=== PATIENT | male | born 1975 | race Caucasian/White ===

== ENCOUNTER 2020-10-23 17:37 | Emergency (ER) | payer BC, OTHER ==
[2020-10-23] MEDS ORDERED: FLU VACC QS2020-21(6MOS UP)/PF 60 MCG/0.5 ML SYRINGE IM ONE (18:15)
--- NOTE | 2020-10-23 19:53 | EDM.PDOC ---
ED HPI GENERAL MEDICAL PROBLEM - General Chief Complaint: General Stated Complaint: ARM NUMBNESS Time Seen by Provider: 10/23/20 19:24 Source of Information: Reports: Patient, RN Notes Reviewed History Limitations: Reports: No Limitations - History of Present Illness INITIAL COMMENTS - FREE TEXT/NARRATIVE: Patient is a 45-year-old male presenting to the emergency department with complaints of a 3 to 4-month history of intermittent numbness and tingling to areas of his body. He feels there is no association with eating. States soon after eating, he will develop numbness and tingling, mostly in various fingers on both hands, and occasionally on the lateral aspect of his feet. Symptoms last approximately 1 hour and then spontaneously resolve. Patient is currently taking methotrexate for her psoriasis which she states he has taken for a number of years. His primary care provider is located in [facility]. He states he is not seen her since December. He denies any difficulty with speech or unilateral deficits. He has no known history of electrolyte abnormalities or neurologic conditions. Symptoms were not present at the time of my exam. He has used marijuana in the past, but denies any other illicit drug use. - Related Data Allergies Allergy/AdvReac Type Severity Reaction Status Date / Time No Known Allergies Allergy Verified 10/23/20 17:59 Home Meds: Home Meds Finasteride 5 mg PO DAILY 10/23/20 [History] metHOTREXate sodium [Methotrexate] 2.5 mg PO PRUITT 10/23/20 [History] Past Medical History Musculoskeletal History: Reports: RA Dermatologic History: Reports: Psoriasis, Other (See Below) Other Dermatologic History: hidradenitis suppurative - Infectious Disease History Infectious Disease History: Reports: Chicken Pox Social & Family History - Tobacco Use Tobacco Use Status *Q: Current Every Day Tobacco User Years of Tobacco use: 20 Packs/Tins Daily: 1 - Caffeine Use Caffeine Use: Reports: Coffee - Recreational Drug Use Recreational Drug Use: No ED ROS GENERAL - Review of Systems Review Of Systems: See Below Constitutional: Reports: No Symptoms. Denies: Fever, Chills, Weakness HEENT: Reports: No Symptoms Respiratory: Reports: No Symptoms Cardiovascular: Reports: No Symptoms Endocrine: Reports: No Symptoms GI/Abdominal: Reports: No Symptoms : Reports: No Symptoms Neurological: Reports: Other (Intermittent numbness and paresthesia to fingers of bilateral hands and occasionally lateral aspects of bilateral feet.) Psychiatric: Reports: No Symptoms Hematologic/Lymphatic: Reports: No Symptoms Immunologic: Reports: No Symptoms ED EXAM, GENERAL - Physical Exam Exam: See Below Exam Limited By: No Limitations General Appearance: Alert, WD/WN, No Apparent Distress Respiratory/Chest: No Respiratory Distress, Lungs Clear, Normal Breath Sounds, No Accessory Muscle Use, Chest Non-Tender Cardiovascular: Normal Peripheral Pulses, Regular Rate, Rhythm, No Edema, No Gallop, No JVD, No Murmur, No Rub Extremities: Normal Inspection, Normal Range of Motion, Non-Tender, Normal Capillary Refill, No Pedal Edema Neurological: Alert, Oriented, CN II-XII Intact, Normal Cognition, Normal Gait, Normal Reflexes, No Motor/Sensory Deficits Psychiatric: Normal Affect, Normal Mood Skin Exam: Warm, Dry, Intact, Normal Color, No Rash Course - Vital Signs Last Recorded V/S: Last Vital Signs Temp 98.4 F 10/23/20 18:05 Pulse 88 10/23/20 18:05 Resp 20 10/23/20 18:05 BP 132/95 H 10/23/20 18:05 Pulse Ox 98 10/23/20 18:05 - Orders/Labs/Meds Orders: Active Orders 24 hr Category Date Time Status Influenza Vaccine Charge [RC] .DISCHARGE Care 10/23/20 18:08 Active Head wo Cont [CT] Stat Exams 10/23/20 19:45 Taken Labs: Laboratory Tests 10/23/20 10/23/20 Range/Units 19:54 19:54 WBC 6.25 (4.23-9.07) K/mm3 RBC 3.72 L (4.63-6.08) M/mm3 Hgb 13.5 L (13.7-17.5) gm/dl Hct 40.7 (40.1-51.0) % MCV 109.4 H (79.0-92.2) fl MCH 36.3 H (25.7-32.2) pg MCHC 33.2 (32.2-35.5) g/dl RDW Std Deviation 48.4 H (35.1-43.9) fL Plt Count 209 (163-337) K/mm3 MPV 9.1 L (9.4-12.3) fl Neut % (Auto) 68.8 H (34.0-67.9) % Lymph % (Auto) 21.9 (21.8-53.1) % [place] % (Auto) 8.0 (5.3-12.2) % Eos % (Auto) 0.5 L (0.8-7.0) Baso % (Auto) 0.3 (0.1-1.2) % Neut # (Auto) 4.30 (1.78-5.38) K/mm3 Lymph # (Auto) 1.37 (1.32-3.57) K/mm3 [place] # (Auto) 0.50 (0.30-0.82) K/mm3 Eos # (Auto) 0.03 L (0.04-0.54) K/mm3 Baso # (Auto) 0.02 (0.01-0.08) K/mm3 Manual Slide Review Abnormal smear Sodium 138 (136-145) mEq/L Potassium 4.1 (3.5-5.1) mEq/L Chloride 101 (98-107) mEq/L Carbon Dioxide 23 (21-32) mEq/L Anion Gap 18.1 H (5-15) BUN 10 (7-18) mg/dL Creatinine 1.1 (0.7-1.3) mg/dL Est Cr Clr Drug Dosing 79.89 mL/min Estimated GFR (MDRD) > 60 (>60) mL/min BUN/Creatinine Ratio 9.1 L (14-18) Glucose 81 (74-106) mg/dL Calcium 8.8 (8.5-10.1) mg/dL Magnesium 1.9 (1.8-2.4) mg/dl Total Bilirubin 0.8 (0.2-1.0) mg/dL AST 38 H (15-37) U/L ALT 26 (16-63) U/L Alkaline Phosphatase 46 (46-116) U/L C-Reactive Protein < 0.2 (<1.0) mg/dL Total Protein 6.9 (6.4-8.2) g/dl Albumin 3.8 (3.4-5.0) g/dl Globulin 3.1 gm/dL Albumin/Globulin Ratio 1.2 (1-2) Meds: Medications Discontinued Medications Generic Name Dose Route Start Last Admin Trade Name Freq PRN Reason Stop Dose Admin Influenza Virus Vaccine 1 each 10/23/20 18:08 Pharmacy To Dose - Influenza Vaccine IM 10/23/20 18:09 ONETIME ONE Influenza Virus Vaccine 60 mcg 10/23/20 18:15 Fluzone Quad [id number] Syringe IM 10/23/20 18:16 .ONCE ONE - Re-Assessments/Exams Free Text/Narrative Re-Assessment/Exam: Patient is a 45-year-old male presenting to the emergency department with complaints of intermittent and random paresthesia to his distal extremities. He feels that there is association to when he eats. Symptoms are not present at the time of exam. His neurologic exam was found to be completely normal. Ordered blood work to check for electrolyte abnormalities including CBC, CMP, magnesium, CRP. We also do a CT scan of his head to rule out any intracranial abnormalities. 10/23/20 22:06 Is work-up was grossly unremarkable. Electrolytes are normal. CT scan of the head shows no acute intracranial process. There is some mild generalized atrophy for the patient's stated age. Discussed results with patient. Would recommend that he follow-up with his primary care provider as further imaging such as MRI may be indicated. He may also benefit from a referral to neurology as needed. Discharge instructions as documented. Departure - Departure Time of Disposition: 22:07 Disposition: Home, Self-Care 01 Condition: Good Clinical Impression: Paresthesia - Discharge Information *PRESCRIPTION DRUG MONITORING PROGRAM REVIEWED*: No *COPY OF PRESCRIPTION DRUG MONITORING REPORT IN PATIENT ELAINE: No Referrals: Bev Joyner NP [Ordering Only Provider] - Forms: ED Department Discharge Additional Instructions: You were seen in the emergency department today for random, intermittent numbness and tingling to your distal extremities over the last 3 to 4 months. Work-up included blood work and a CT scan of your head. Your work-up was found to be normal. As we discussed, I would recommend that you follow-up with your primary care provider as further testing in the form of MRI or possibly a referral to neurology may be indicated. If you should experience any new or worsening symptoms of concern, please do not hesitate to return to the emergency department for reevaluation. Sepsis Event Note (ED) - Evaluation Sepsis Screening Result: No Definite Risk - Focused Exam Vital Signs: Vital Signs Temp Pulse Resp BP Pulse Ox 10/23/20 18:05 98.4 F 88 20 132/95 H 98 - My Orders Last 24 Hours: My Active Orders 10/23/20 18:08 Influenza Vaccine Charge [RC] .DISCHARGE 10/23/20 19:45 Head wo Cont [CT] Stat - Assessment/Plan Last 24 Hours: My Active Orders 10/23/20 18:08 Influenza Vaccine Charge [RC] .DISCHARGE 10/23/20 19:45 Head wo Cont [CT] Stat
--- NOTE | 2020-10-24 10:25 | CT ---
Head CT Technique: Multiple axial sections through the brain were obtained. Intravenous contrast was not utilized. Comparison: No prior intracranial imaging is available. Findings: Intracranial: Ventricles along with basal cisterns and sulci over the convexities are slightly prominent. No abnormal parenchymal densities are seen. No evidence of intracranial hemorrhage. No midline shift or mass-effect is seen. Calvarial structures: Visualized mastoid sinuses and visualized paranasal sinuses show nothing acute. No acute calvarial abnormality is appreciated. Impression: 1. Mild atrophy. 2. No acute intracranial abnormality is otherwise seen. Diagnostic code #2
== END 2020-10-23 22:20 | disposition home or self-care (01) ==
LOC: JD.ED 17:37
DX: R20.2 Paresthesia of skin (principal); R20.0 Anesthesia of skin; F17.210 Nicotine dependence, cigarettes, uncomplicated; Z23 Encounter for immunization
CPT/HCPCS: 36415; 70450; 70450-26; 80053; 83735; 85025; 86140; 90471; 90686; 99283; 99284-25

== ENCOUNTER 2021-07-01 13:08 | Emergency (ER) | payer OTHER ==
--- NOTE | 2021-07-01 15:29 | EDM.PDOC ---
ED HPI GENERAL MEDICAL PROBLEM - General Chief Complaint: Skin Complaint Stated Complaint: ABSCESS ON BUTTOCK Time Seen by Provider: 07/01/21 15:08 - History of Present Illness INITIAL COMMENTS - FREE TEXT/NARRATIVE: 46-year-old male presents the emergency room with recurrent abscess in his perirectal region Patient has had recurrent abscesses removed from this area probably 15-18 over his life. He has a diagnosis of hidradenitis suppurativa he has had multiple lesions treated in his axilla as well and he was recently diagnosed with pilonidal disease over his sacrum. This current lesion and has grown significantly but was first noticed this morning. He has not had any fevers or chills. Last meal was 7:00 this morning he had some coffee as late as 11:00 this morning. Rectal Pain Score (Numeric/FACES): 5 - Related Data Allergies Allergy/AdvReac Type Severity Reaction Status Date / Time No Known Allergies Allergy Verified 07/01/21 13:30 Home Meds: Home Meds Finasteride 5 mg PO DAILY 10/23/20 [History] Clindamycin Phosphate 60 ml TP BID #1 lotion 07/01/21 [Rx] Fish Oil/[place]-3 Fatty Acids [Fish Oil 1,000 MG] 1 each PO DAILY 07/01/21 [History] Multivitamin 1 each PO DAILY 07/01/21 [History] Zinc Gluconate 100 mg PO DAILY #21 tablet 07/01/21 [Rx] Past Medical History Musculoskeletal History: Reports: RA Dermatologic History: Reports: Psoriasis, Other (See Below) Other Dermatologic History: hidradenitis suppurative - Infectious Disease History Infectious Disease History: Reports: Chicken Pox Social & Family History - Tobacco Use Tobacco Use Status *Q: Current Every Day Tobacco User Years of Tobacco use: 25 Packs/Tins Daily: 0.5 - Caffeine Use Caffeine Use: Reports: Coffee - Alcohol Use Days Per Week of Alcohol Use: 7 Number of Drinks Per Day: 2 Total Drinks Per Week: 14 Date of Last Drink: 06/30/21 - Recreational Drug Use Recreational Drug Use: No ED ROS GENERAL - Review of Systems Review Of Systems: See Below Constitutional: Reports: No Symptoms Respiratory: Reports: No Symptoms Cardiovascular: Reports: No Symptoms GI/Abdominal: Reports: No Symptoms : Reports: No Symptoms Musculoskeletal: Reports: No Symptoms Skin: Reports: Other (See HPI) ED EXAM, SKIN/RASH Exam: See Below Exam Limited By: No Limitations General Appearance: Alert, No Apparent Distress Respiratory/Chest: No Respiratory Distress, Lungs Clear, Normal Breath Sounds Cardiovascular: Normal Peripheral Pulses, Regular Rate, Rhythm, No Edema GI/Abdominal: Normal Bowel Sounds, Soft, Non-Tender Rectal (Males) Exam: Other (He has a perirectal lesion that looks like a developing abscess. He is good some scar tissue noted in the region this is fluctuant over one area and the area looks like it has been oozing a little bit exudative material.) Course - Vital Signs Last Recorded V/S: Last Vital Signs Temp 37.2 C 07/01/21 13:27 Pulse 96 07/01/21 13:27 Resp 16 07/01/21 13:27 BP 119/88 07/01/21 13:27 Pulse Ox 99 07/01/21 13:27 - Orders/Labs/Meds Orders: Active Orders 24 hr Category Date Time Status cefTRIAXone 1 GM with Lidocaine 1% 2.1 ML IM Med 07/01/21 16:45 Ordered cefTRIAXone [Rocephin] 1 gm Lidocaine 1% [Xylocaine 1%] 2.1 ml IM Q24H Medication Orders Ceftriaxone Sodium 1 gm/ (Lidocaine HCl 2.1 ml) 0 gm IM Q24H [facility] Meds: Medications Generic Name Dose Route Start Last Admin Trade Name Freq PRN Reason Stop Dose Admin Ceftriaxone Sodium 1 gm/ 0 gm 07/01/21 16:45 Lidocaine HCl 2.1 ml IM Q24H OLIVE Discontinued Medications Generic Name Dose Route Start Last Admin Trade Name Freq PRN Reason Stop Dose Admin Lidocaine HCl 10 ml 07/01/21 15:49 Lidocaine 1% 10 Ml Mdv INJECT 07/01/21 15:50 ONETIME ONE - Re-Assessments/Exams Free Text/Narrative Re-Assessment/Exam: 07/01/21 15:53 Case was reviewed with Dr. Jackson who did come and evaluate the patient. He is willing to aspirate the lesion but did discuss the importance of having either a reaming machine tender or possibly soc analyst manages illness for him. He discouraged the use of excisional removal of lesions. 07/01/21 16:38 Jackson to drain off little over 4 cc of exudate from the most fluctuant area at this point we will give 1 g Rocephin and start him on topical clindamycin and recommended zinc for the next 3 weeks. Long-term treatment is considered plastic reconstruction use topical resourcinol sulfur dressings daily consider methylprednisolone taper for 1 week consider oral rifampin moxifloxacin and metronidazole therapy for 12 weeks consider tumor necrosis factor floyd adalinimab. It is strongly recommended that somebody that has expertise in this field manage this such as a reaming machine tender or soc analyst. Departure - Departure Time of Disposition: 16:42 Disposition: Home, Self-Care 01 Clinical Impression: Hidradenitis suppurativa of anus - Discharge Information Referrals: PCP,None [Primary Care Provider] - Forms: ED Department Discharge Additional Instructions: Return to the emergency room with any questions problems or worsening symptoms. Take the zinc as prescribed and the topical clindamycin use twice daily. There is a refill for the clindamycin. The clindamycin is a topical antibiotic. [facility] [place] [facility]. Follow-up with your regular healthcare providers in the next day or 2. Sepsis Event Note (ED) - Evaluation Sepsis Screening Result: No Definite Risk - Focused Exam Vital Signs: Vital Signs Temp Pulse Resp BP Pulse Ox 07/01/21 13:27 37.2 C 96 16 119/88 99 - My Orders Last 24 Hours: My Active Orders 07/01/21 16:45 cefTRIAXone 1 GM with Lidocaine 1% 2.1 ML IM cefTRIAXone [Rocephin] 1 gm Lidocaine 1% [Xylocaine 1%] 2.1 ml IM Q24H - Assessment/Plan Last 24 Hours: My Active Orders 07/01/21 16:45 cefTRIAXone 1 GM with Lidocaine 1% 2.1 ML IM cefTRIAXone [Rocephin] 1 gm Lidocaine 1% [Xylocaine 1%] 2.1 ml IM Q24H
[2021-07-01] MEDS ORDERED: Lidocaine 1% 10 ML MDV INJECT ONE (15:49)
--- NOTE | 2021-07-01 16:41 | PCM.PRNOTE ---
- Free Text/Narrative Note: Date: 07/01/2021 Procedure: Needle aspiration of perianal abscess in patient with hidradenitis suppurativa Surgeon: Eben Jackson MD Written consent was obtained. The patient was positioned on the stretcher in left lateral decubitus position. The painful fluctuant area was cleansed with an iodine swab. 2 cc 1% lidocaine was injected intradermally with a 27 G needle. An 18 G needle was then inserted at the point of fluctuance and negative pressure applied. About 5 cc of thin purulent liquid was apirated along with some blood. No remaining fluctuance was appreciated afterwards. The patient tolerated the procedure well.
[2021-07-01] MEDS ORDERED: cefTRIAXone 1 GM, Lidocaine 1% 2.1 ML IM SCH ×2 (16:45)
--- NOTE | 2021-07-01 16:46 | PCM.CONS ---
H&P History of Present Illness - General Date of Service: 07/01/21 Admit Problem/Dx: Hidradenitis suppurativa with painful perianal abscess Source of Information: Patient, Provider History Limitations: Reports: No Limitations - History of Present Illness Initial Comments - Free Text/Narative: Mr. Durant is a 46 yo man with history of hidradenitis which has affected his axillae, groin and perineum for years. He was treated surgically in the past at least for the axillary disease by Dr. Villalobos. He takes no medication for hidradenitis and has not seen a specialist for management. He saw Dr. Steen g eneral surgery, in clinic recently and was found to have pilonidal disease at the lower midline as well. He presents today for a painful swelling near the anus which has developed over the past few days. Dr. Steen advised the patient to consult with plastic surgery regarding excision and skin grafting, but the patient has not made an appointment for this. Rectal Pain Score (Numeric/FACES): 5 - Related Data Allergies/Adverse Reactions: Allergies Allergy/AdvReac Type Severity Reaction Status Date / Time No Known Allergies Allergy Verified 07/01/21 13:30 Home Medications: Home Meds Finasteride 5 mg PO DAILY 10/23/20 [History] Fish Oil/[place]-3 Fatty Acids [Fish Oil 1,000 MG] 1 each PO DAILY 07/01/21 [History] Multivitamin 1 each PO DAILY 07/01/21 [History] Past Medical History Musculoskeletal History: Reports: RA Dermatologic History: Reports: Psoriasis, Other (See Below) Other Dermatologic History: hidradenitis suppurative - Infectious Disease History Infectious Disease History: Reports: Chicken Pox Social & Family History - Tobacco Use Tobacco Use Status *Q: Current Every Day Tobacco User Years of Tobacco use: 25 Packs/Tins Daily: 0.5 - Caffeine Use Caffeine Use: Reports: Coffee - Alcohol Use Days Per Week of Alcohol Use: 7 Number of Drinks Per Day: 2 Total Drinks Per Week: 14 Date of Last Drink: 06/30/21 - Recreational Drug Use Recreational Drug Use: No H&P Review of Systems - Review of Systems: Review Of Systems: See Below General: Reports: No Symptoms HEENT: Reports: No Symptoms Pulmonary: Reports: No Symptoms Cardiovascular: Reports: No Symptoms Gastrointestinal: Reports: No Symptoms Genitourinary: Reports: No Symptoms Musculoskeletal: Reports: No Symptoms Skin: Reports: Other (hidradenitis with pain and drainage at lower back, perineum) Neurological: Reports: No Symptoms Hematologic/Lymphatic: Reports: No Symptoms Immunologic: Reports: No Symptoms Exam - Exam Exam: See Below - Vital Signs Vital Signs: Last Vital Signs Temp 37.2 C 07/01/21 13:27 Pulse 96 07/01/21 13:27 Resp 16 07/01/21 13:27 BP 119/88 07/01/21 13:27 Pulse Ox 99 07/01/21 13:27 Weight: 69.853 kg - Exam General: Alert, Oriented, Cooperative HEENT: Conjunctiva Clear Neck: Supple Lungs: Normal Respiratory Effort Cardiovascular: Regular Rate, Regular Rhythm GI/Abdominal Exam: Soft, Non-Tender (Male) Exam: Other (genitals and groin appear normal) Back Exam: Other (pilonidal sinuses noted at apex of gluteal cleft, with some thin, scant purulent drainage, no palpable underlying pilonidal abscess) Skin: Other (evidence of resolved hidradenitis at bilateral axillae, indurated perianal tissue with raised nodular tender area with associated fluctuance) Neuro Extensive - Mental Status: Alert, Oriented x3 Psychiatric: Normal Mood Sepsis Event Note - Evaluation Sepsis Screening Result: No Definite Risk - Focused Exam Vital Signs: Vital Signs Temp Pulse Resp BP Pulse Ox 07/01/21 13:27 37.2 C 96 16 119/88 99 Consult PN Assessment/Plan Procedures: Procedures ASSAY OF MAGNESIUM (10/23/20) C-REACTIVE PROTEIN (10/23/20) COMPLETE CBC W/AUTO DIFF WBC (10/23/20) COMPREHEN METABOLIC PANEL (10/23/20) CT HEAD/BRAIN W/O DYE (10/23/20) EMERGENCY DEPT VISIT (10/23/20) IIV4 VACC NO PRSV 0.5 ML IM (10/23/20) IMMUNIZATION ADMIN (10/23/20) ROUTINE VENIPUNCTURE (10/23/20) Problem List Initiated/Reviewed/Updated: Yes Plan: The patient appears to have moderate hidradenitis, currently affecting the perineum. There are noted draining pilonidal sinuses in close proximity without evidence of pilonidal abscess. There is a single painful left-sided perianal abscess. This was aspirated with a 18 G needle using local anesthetic and 5 cc of pus was drained. A larger incision was avoided due to concern for worsening underlying hidradenitis. The patient currently has no medical management in place for his disease. I explained to him that the abscess is likely to recur without a proper supervisor intermediates management plan in place. For more advanced or refractory disease, medical management should include Psychological screening for issues of depression, socialization, and body image Zinc gluconate 90 mg/day for 3 weeks Topical resorcinol-sulfur dressing daily ad infinitum Methylprednisolone 1-week taper Intravenous ceftriaxone (1 dose), then oral rifampin, moxifloxacin, metronidazole for 12 weeks, then rifampin and moxifloxacin for 12 more weeks If all these fail, dapsone and or cyclosporine can be considered. Finally, cons ider the tissue necrosis factor floyd adalimumab. However, surgery may be the best option for definitive cure. Mild disease can be treated with simple unroofing and curettage, but chronic wound management can be a challenge and recurrence is high. Advanced disease should be managed with excision of affected tissue and closure with skin grafting. I recommended that the patient make an appointment to see his primary provider this week for chronic management of hidradenitis and that he see a plastic surgeon for assessment and recommendations.
== END 2021-07-01 17:20 | disposition home or self-care (01) ==
LOC: JD.ED 13:08
DX: L73.2 Hidradenitis suppurativa (principal); Z72.0 Tobacco use
CPT/HCPCS: 96372; 99282; J0696; 99283

== ENCOUNTER → 2021-07-04 | Day surgery (SDC) | payer OTHER ==
[~2021-07-04] MED LIST: Bacitracin Oint 15 GM Tube ONE; Lactated Ringers 1,000 ML IV SCH; Lidocaine 1% 8 ML ONE; Lidocaine 1%/Sod Bicarbonate in NS 8.4% 1 ML Syringe IDERM PRN; Midazolam 1 MG/ML 2 ML SDV ONE; Ondansetron 4 MG/2 ML SDV ONE; Propofol 200 MG/20 ML SDV ONE; Sodium Chloride 0.9% 10 ML Syringe FLUSH PRN; fentaNYL 100 MCG/2 ML SDV ONE
--- NOTE | 2021-07-04 12:10 | PCM.PREANE ---
Preanesthetic Assessment - Procedure Proposed Procedure: Examination under anesthesia - Anesthesia/Transfusion/Family Hx Anesthesia History: Prior Anesthesia Without Reaction - Review of Systems General: No Symptoms Pulmonary: No Symptoms Cardiovascular: No Symptoms Gastrointestinal: No Symptoms Neurological: No Symptoms Other: Reports: None - Physical Assessment NPO Status Date: 07/03/21 NPO Status Time: 22:00 Vital Signs: Last Vital Signs Temp 99.3 F 07/04/21 11:30 Pulse 88 07/04/21 11:30 Resp 20 07/04/21 11:30 BP 118/85 07/04/21 11:30 Pulse Ox 97 07/04/21 11:30 ASA Class: 2 Mental Status: Alert & Oriented x3 Airway Class: Mallampati = 2 Dentition: Reports: Normal Dentition, [place](s) Thyro-Mental Finger Breadths: 3 Mouth Opening Finger Breadths: 3 ROM/Head Extension: Full Lungs: Clear to Auscultation, Normal Respiratory Effort Cardiovascular: Regular Rate, Regular Rhythm - Allergies Allergies/Adverse Reactions: Allergies Allergy/AdvReac Type Severity Reaction Status Date / Time No Known Allergies Allergy Verified 07/01/21 13:30 - Acknowledgements Anesthesia Type Planned: General Anesthesia, MAC Pt an Appropriate Candidate for the Planned Anesthesia: Yes Alternatives and Risks of Anesthesia Discussed w Pt/Guardian: Yes Pt/Guardian Understands and Agrees with Anesthesia Plan: Yes PreAnesthesia Questionnaire Musculoskeletal History: Reports: RA Dermatologic History: Reports: Psoriasis, Other (See Below) Other Dermatologic History: hidradenitis suppurative - Infectious Disease History Infectious Disease History: Reports: Chicken Pox - HOME MEDS Home Medications: Home Meds Finasteride 5 mg PO DAILY 10/23/20 [History] Clindamycin Phosphate 60 ml TP BID #1 lotion 07/01/21 [Rx] Fish Oil/[place]-3 Fatty Acids [Fish Oil 1,000 MG] 1 each PO DAILY 07/01/21 [History] Multivitamin 1 each PO DAILY 07/01/21 [History] Zinc Gluconate 100 mg PO DAILY #21 tablet 07/01/21 [Rx] - CURRENT (IN HOUSE) MEDS Current Meds: Current Medications Lactated Ringer's (Ringers, Lactated) 1,000 mls @ 125 mls/hr IV ASDIRECTED OLIVE Stop: 07/04/21 23:00 Lidocaine/Sodium Bicarbonate (Lidocaine 1%/Sod Bicarbonate In Ns 8.4% 1 Ml Syringe) 0.25 ml IDERM ONETIME PRN PRN Reason: Prior to IV Start Stop: 07/04/21 18:00 Sodium Chloride (Sodium Chloride 0.9% 10 Ml Syringe) 10 ml FLUSH ASDIRECTED PRN PRN Reason: Keep Vein Open Stop: 07/04/21 18:00 Discontinued Medications Fentanyl (Fentanyl 100 Mcg/2 Ml Sdv) Confirm Administered Dose 100 mcg .ROUTE .STK-MED ONE Stop: 07/04/21 11:55 Lidocaine HCl (Xylocaine-Mpf 1%) Confirm Administered Dose 8 mls @ as directed .ROUTE .STK-MED ONE Stop: 07/04/21 11:55 Midazolam HCl (Midazolam 1 Mg/Ml 2 Ml Sdv) Confirm Administered Dose 4 mg .ROUTE .STK-MED ONE Stop: 07/04/21 11:55 Propofol (Propofol 200 Mg/20 Ml Sdv) Confirm Administered Dose 400 mg .ROUTE .STK-MED ONE Stop: 07/04/21 11:56
[2021-07-04] MEDS: Bupivacaine 0.5%/EPINEPHrine 1:200,000 50 ML MDV ONE ×2 (13:14→13:26)
--- NOTE | 2021-07-04 13:54 | PCM.PRNOTE ---
- Free Text/Narrative Note: Date: 07/04/2021 Operation: excision of pilonidal disease Surgeon: Eben Jackson MD Findings: multiple sinus tract overlying the sacrum and seen at the edge of the anoderm containing hair fragments. The left perianal abscess cavity was opened up more and debrided. Excision of skin with involved pilonidal disease over sacrum and posterior perianal area. Detailed Report: The patient was taken to the operating room and placed on the table in prone position. Monitored anesthesia care was initiated and timeout was performed. The patient was then repositioned in jackknife, and wide silk tape was used to retract the buttocks laterally exposing the anus. The area was prepped with iodine and draped in sterile fashion. A perianal block using 30 cc of 0.5% Marcaine with epinephrine was used for local anesthetic. Additional anesthetic was injected in the sacral area where skin was involved with pilonidal disease. A lacrimal probe was used to explore the sinus tracts overlying the sacrum, which were all fairly superficial and did not appear acutely infected. Multiple pits in this area and around the edge of the anoderm were noted and all hair fragments that were visible were removed with forceps. The area of prior abscess drainage just left to the anus was inspected. The opening was probed and there was no undrained pus appreciated. The roof of the abscess cavity was removed using monopolar energy. The abscess cavity measured approximately 3 x 3 cm. The wall of the cavity was debrided with a curette. This pocket seemed to extend posteriorly towards the area of pilonidal disease overlying the sacrum. An ellipse of skin was excised overlying the sacrum including all the visible pilonidal pits which measured 7 x 5 x 1 cm. The depth of tissue excision was to subcutaneous tissue. All devitalized and infected tissue associated with the abscess cavity was removed. The perianal tissue was left alone for now. There did not appear to be active inflamed hidradenitis or evidence of a perianal fistula. The wound was coated with bacitracin ointment and packed with moist Kerlix. An ABD pad and mesh underwear were applied for dressing. The patient tolerated the procedure well.
--- NOTE | 2021-07-04 14:03 | PCM48HPAN ---
Post Anesthesia Note - EVALUATION WITHIN 48HRS OF ANESTHETIC Vital Signs in Normal Range: Yes Patient Participated in Evaluation: Yes Respiratory Function Stable: Yes Airway Patent: Yes Cardiovascular Function Stable: Yes Hydration Status Stable: Yes Pain Control Satisfactory: Yes Nausea and Vomiting Control Satisfactory: Yes Mental Status Recovered: Yes Vital Signs: Last Vital Signs Temp 98.2 F 07/04/21 13:44 Pulse 87 07/04/21 13:44 Resp 20 07/04/21 13:44 BP 96/59 L 07/04/21 13:44 Pulse Ox 97 07/04/21 13:44
== END | disposition home or self-care (01) ==
LOC: JD.SDS 11:29
PROVIDERS: ATTEND Surgery
DX: L05.01 Pilonidal cyst with abscess (principal); F17.210 Nicotine dependence, cigarettes, uncomplicated
CPT/HCPCS: 11771; A9270; J2250; J2405; J2704; J3010; J3490; J7120; 00300

== ENCOUNTER 2021-10-28 07:57 | Day surgery (SDC) | payer OTHER ==
[2021-10-28] MEDS ORDERED: Lidocaine 1% 10 ML MDV INJECT ONE (08:40)
--- NOTE | 2021-10-28 08:40 | EDM.PDOC ---
ED HPI GENERAL MEDICAL PROBLEM - General Chief Complaint: Gastrointestinal Problem Stated Complaint: ABCESS ON ANUS Time Seen by Provider: 10/28/21 08:19 Source of Information: Reports: Patient, Old Records (ED visit 07/01/2021) History Limitations: Reports: No Limitations - History of Present Illness INITIAL COMMENTS - FREE TEXT/NARRATIVE: Mr. Durant is a very pleasant 46-year-old gentleman with a past medical history significant for hidradenitis suppurativa, with countless axillary and perianal abscesses, status post dozens of surgical drainages, who now presents the ED stating that he developed a painful perianal swelling that drained a few weeks ago, but then reformed about 1 week ago and has not drained since. No recent fever. Here in the ED, the patient was initially found to be slightly tachycardic at 109 bpm, otherwise, he is hemodynamically stable, afebrile, saturating 100% on room air. He appears to be comfortable, in no acute distress. Other than the perianal issue, the patient denies having a recent fever, chills, sore throat, ear pain, nasal or sinus congestion, cough, dyspnea, chest pain, palpitations, nausea, vomiting, constipation, diarrhea, abdominal pain, urinary symptoms, recent weight gain or weight loss, recent bloody bowel movements or black bowel movements, recent joint aches, headaches, or rashes. The patient does not have a PCP. He has received 2 COVID vaccinations, although no influenza vaccination this season. Anus Pain Score (Numeric/FACES): 6 - Related Data Allergies Allergy/AdvReac Type Severity Reaction Status Date / Time No Known Allergies Allergy Verified 10/28/21 08:07 Home Meds: Home Meds Finasteride 5 mg PO DAILY 10/23/20 [History] Fish Oil/Pipestem-3 Fatty Acids [Fish Oil 1,000 MG] 1 each PO DAILY 07/01/21 [History] Multivitamin 1 each PO DAILY 07/01/21 [History] estradioL [Estradiol] 2 mg PO DAILY 10/28/21 [History] Past Medical History Musculoskeletal History: Reports: Other (See Below) (Psoriatic arthritis, untreated) Dermatologic History: Reports: Psoriasis (Untreated), Other (See Below) (Hidradenitis suppurativa) - Infectious Disease History Infectious Disease History: Reports: Chicken Pox - Past Surgical History GI Surgical History: Reports: Other (See Below) (Absence of perianal abscess drainages. Hemorrhoidectomy. Fistulotomy.) Social & Family History - Tobacco Use Tobacco Use Status *Q: Current Every Day Tobacco User Years of Tobacco use: 33 Packs/Tins Daily: 1 Packs/Tins Daily Comment: Down from 2 ppd Tobacco Use Comment: Started smoking 1987 - Caffeine Use Caffeine Use: Reports: Coffee - Alcohol Use Alcohol Use History: Yes Days Per Week of Alcohol Use: 5 Number of Drinks Per Day: 3 Total Drinks Per Week: 15 - Recreational Drug Use Recreational Drug Use: Yes Drug Use in Last 12 Months: Yes Recreational Drug Type: Reports: Marijuana/Hashish (smokes on occasion - last late Sep 2021) - Living Situation & Occupation Living situation: Reports: (getting a divorce), Alone Occupation: Employed ([employer] developer) ED ROS GENERAL - Review of Systems Review Of Systems: Comprehensive ROS is negative, except as noted in HPI. ED EXAM, GI/ABD - Physical Exam Exam: See Below Exam Limited By: No Limitations General Appearance: Alert, WD/WN, No Apparent Distress Rectal (Males) Exam: Other (Firm, tender, erythematous swelling to the right of the anus, consistent with a perianal abscess) Course - Vital Signs Last Recorded V/S: Last Vital Signs Temp 36.3 C 10/28/21 08:07 Pulse 109 H 10/28/21 08:07 Resp 20 10/28/21 08:07 BP 124/90 10/28/21 08:07 Pulse Ox 100 10/28/21 08:07 - Orders/Labs/Meds Labs: Laboratory Tests 10/28/21 Range/Units 09:31 Influenza Type A RNA Negative (NEGATIVE) Influenza Type B RNA Negative (NEGATIVE) SARS-CoV-2 RNA (PAULA) Negative (NEGATIVE) Meds: Medications Discontinued Medications Generic Name Dose Route Start Last Admin Trade Name Freq PRN Reason Stop Dose Admin Bupivacaine HCl Confirm 10/28/21 10:27 Bupivacaine 0.5% 30 Ml Sdv Administered 10/28/21 10:28 Dose 30 ml .ROUTE .STK-MED ONE Fentanyl Confirm 10/28/21 10:23 Fentanyl 100 Mcg/2 Ml Sdv Administered 10/28/21 10:24 Dose 100 mcg .ROUTE .STK-MED ONE Lidocaine HCl Confirm 10/28/21 10:24 Xylocaine-Mpf 1% Administered 10/28/21 10:25 Dose 4 mls @ as directed .ROUTE .STK-MED ONE Lactated Ringer's Confirm 10/28/21 10:30 Ringers, Lactated Administered 10/28/21 10:31 Dose 1,000 mls @ as directed .ROUTE .STK-MED ONE Lidocaine HCl 10 ml 10/28/21 08:40 10/28/21 09:34 Lidocaine 1% 10 Ml Mdv INJECT 10/28/21 08:41 Not Given ONETIME ONE Midazolam HCl Confirm 10/28/21 10:24 Midazolam 1 Mg/Ml 2 Ml Sdv Administered 10/28/21 10:25 Dose 2 mg .ROUTE .STK-MED ONE Ondansetron HCl Confirm 10/28/21 10:23 Ondansetron 4 Mg/2 Ml Sdv Administered 10/28/21 10:24 Dose 4 mg .ROUTE .STK-MED ONE Propofol Confirm 10/28/21 10:23 Propofol 200 Mg/20 Ml Sdv Administered 10/28/21 10:24 Dose 200 mg .ROUTE .STK-MED ONE - Re-Assessments/Exams Free Text/Narrative Re-Assessment/Exam: 10/28/21 08:34 On examination, the patient has a right perianal abscess. I will contact Dr. Jackson to see if he would be willing and able to come to the ED to drain the abscess. 10/28/21 08:[address] Jackson at 08:37. He will come to the ED to evaluate the patient. 10/28/21 09:24 Notified by Carla TORRES that Dr. Jackson is taking the patient to the OR. 10/28/21 10:47 The patient's swab for the SARS-CoV-2 virus and influenza A + B is negative for all. Departure - Departure Time of Disposition: 09:24 Disposition: DC/Tfer to [facility] Condition: Good Clinical Impression: Perianal abscess - Discharge Information *PRESCRIPTION DRUG MONITORING PROGRAM REVIEWED*: Not Applicable *COPY OF PRESCRIPTION DRUG MONITORING REPORT IN PATIENT ELAINE: Not Applicable Sepsis Event Note (ED) - Evaluation Sepsis Screening Result: No Definite Risk - Focused Exam Vital Signs: Vital Signs Temp Pulse Resp BP Pulse Ox 10/28/21 08:07 36.3 C 109 H 20 124/90 100
--- NOTE | 2021-10-28 09:42 | PCM.HP.2 ---
H&P History of Present Illness - General Date of Service: 10/28/21 Source of Information: Patient History Limitations: Reports: No Limitations - History of Present Illness Initial Comments - Free Text/Narative: Mr. 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 This has been bothering him for several days. He has not yet seen a provider for this and is not taking any antibiotics. Anus Pain Score (Numeric/FACES): 6 - Related Data Allergies/Adverse Reactions: Allergies Allergy/AdvReac Type Severity Reaction Status Date / Time No Known Allergies Allergy Verified 10/28/21 08:07 Home Medications: Home Meds Finasteride 5 mg PO DAILY 10/23/20 [History] Fish Oil/Jean-3 Fatty Acids [Fish Oil 1,000 MG] 1 each PO DAILY 07/01/21 [History] Multivitamin 1 each PO DAILY 07/01/21 [History] estradioL [Estradiol] 2 mg PO DAILY 10/28/21 [History] Past Medical History Musculoskeletal History: Reports: Other (See Below) (Psoriatic arthritis, untreated) Dermatologic History: Reports: Psoriasis (Untreated), Other (See Below) (Hidradenitis suppurativa) Other Dermatologic History: hidradenitis suppurative - Infectious Disease History Infectious Disease History: Reports: Chicken Pox - Past Surgical History GI Surgical History: Reports: Other (See Below) (Absence of perianal abscess drainages. Hemorrhoidectomy. Fistulotomy.) Social & Family History - Tobacco Use Tobacco Use Status *Q: Current Every Day Tobacco User Years of Tobacco use: 33 Packs/Tins Daily: 1 Tobacco Use Comment: Started smoking 1987 - Caffeine Use Caffeine Use: Reports: Coffee - Alcohol Use Days Per Week of Alcohol Use: 5 Number of Drinks Per Day: 3 Total Drinks Per Week: 15 - Recreational Drug Use Recreational Drug Use: Yes Drug Use in Last 12 Months: Yes Recreational Drug Type: Reports: Marijuana/Hashish (smokes on occasion - last late Sep 2021) Recreational Drug Use Frequency: Rarely - Living Situation & Occupation Living situation: Reports: (getting a divorce), Alone Occupation: Employed (sales developer) H&P Review of Systems - Review of Systems: Review Of Systems: See Below General: Reports: No Symptoms HEENT: Reports: No Symptoms Pulmonary: Reports: No Symptoms Cardiovascular: Reports: No Symptoms Gastrointestinal: Reports: Other (perianal pain) Genitourinary: Reports: No Symptoms Musculoskeletal: Reports: No Symptoms Skin: Reports: No Symptoms Psychiatric: Reports: No Symptoms Neurological: Reports: No Symptoms Hematologic/Lymphatic: Reports: No Symptoms Exam - Exam Exam: See Below - Vital Signs Vital Signs: Last Vital Signs Temp 36.3 C 10/28/21 08:07 Pulse 109 H 10/28/21 08:07 Resp 20 10/28/21 08:07 BP 124/90 10/28/21 08:07 Pulse Ox 100 10/28/21 08:07 Weight: 71.985 kg - Exam General: Alert, Oriented, Cooperative HEENT: Conjunctiva Clear Neck: Supple Lungs: Normal Respiratory Effort Cardiovascular: Regular Rate GI/Abdominal Exam: Soft Rectal (Males) Exam: Perirectal Abscess (small raised erythematous indurated tender perianal abscess at right lateral aspect) Skin: Warm, Dry, Other (swollen, erythematous area at left axilla) Neuro Extensive - Mental Status: Normal Mood/Affect Sepsis Event Note - Evaluation Sepsis Screening Result: No Definite Risk - Focused Exam Vital Signs: Vital Signs Temp Pulse Resp BP Pulse Ox 10/28/21 08:07 36.3 C 109 H 20 124/90 100 Problem List Initiated/Reviewed/Updated: Yes Orders Last 24hrs: Active Orders 24 hr Category Date Time Status COVID-19/FLU A+B [[facility]] Stat Lab 10/28/21 09:31 Received Assessment/Plan Comment:: perianal abscess. Plan for OR for incision and drainage. - Mortality Measure Prognosis:: Good
--- NOTE | 2021-10-28 10:05 | PCM.PREANE ---
Preanesthetic Assessment - Procedure Proposed Procedure: I&D perirectal abscess - Anesthesia/Transfusion/Family Hx Anesthesia History: Prior Anesthesia Without Reaction Family History of Anesthesia Reaction: No Transfusion History: No Prior Transfusion(s) - Review of Systems General: No Symptoms Pulmonary: No Symptoms Cardiovascular: No Symptoms Gastrointestinal: No Symptoms Neurological: Numbness (fingers and toes at times random) Other: Reports: None - Physical Assessment NPO Status Date: 10/28/21 NPO Status Time: 05:55 Vital Signs: Last Vital Signs Temp 36.3 C 10/28/21 08:07 Pulse 109 H 10/28/21 08:07 Resp 20 10/28/21 08:07 BP 124/90 10/28/21 08:07 Pulse Ox 100 10/28/21 08:07 Height: 1.75 m Weight: 71.985 kg ASA Class: 2 Mental Status: Alert & Oriented x3 Airway Class: Mallampati = 1 Dentition: Reports: Caries Thyro-Mental Finger Breadths: 3 Mouth Opening Finger Breadths: 3 ROM/Head Extension: Full Lungs: Clear to Auscultation, Normal Respiratory Effort Cardiovascular: Regular Rate, Regular Rhythm - Allergies Allergies/Adverse Reactions: Allergies Allergy/AdvReac Type Severity Reaction Status Date / Time No Known Allergies Allergy Verified 10/28/21 08:07 - Blood Blood Available: No Product(s) Available: None - Anesthesia Plan Pre-Op Medication Ordered: None - Acknowledgements Anesthesia Type Planned: MAC Pt an Appropriate Candidate for the Planned Anesthesia: Yes Alternatives and Risks of Anesthesia Discussed w Pt/Guardian: Yes Pt/Guardian Understands and Agrees with Anesthesia Plan: Yes PreAnesthesia Questionnaire Gastrointestinal History: Reports: GERD Musculoskeletal History: Reports: Other (See Below) (Psoriatic arthritis, untreated) Dermatologic History: Reports: Psoriasis (Untreated), Other (See Below) (Hidradenitis suppurativa) Other Dermatologic History: hidradenitis suppurative - Infectious Disease History Infectious Disease History: Reports: Chicken Pox - Past Surgical History GI Surgical History: Reports: Other (See Below) (Absence of perianal abscess drainages. Hemorrhoidectomy. Fistulotomy.) - SUBSTANCE USE Tobacco Use Status *Q: Current Every Day Tobacco User Tobacco Use Within Last Twelve Months: Cigarettes Second Hand Smoke Exposure: No Days Per Week of Alcohol Use: 5 Number of Drinks Per Day: 3 Total Drinks Per Week: 15 Recreational Drug Use History: Yes Recreational Drug Type: Reports: Marijuana/Hashish (smokes on occasion - last late Sep 2021) - HOME MEDS Home Medications: Home Meds Finasteride 5 mg PO DAILY 10/23/20 [History] Fish Oil/Webster-3 Fatty Acids [Fish Oil 1,000 MG] 1 each PO DAILY 07/01/21 [History] Multivitamin 1 each PO DAILY 07/01/21 [History] estradioL [Estradiol] 2 mg PO DAILY 10/28/21 [History] - CURRENT (IN HOUSE) MEDS Current Meds: Current Medications Discontinued Medications Lidocaine HCl (Lidocaine 1% 10 Ml Mdv) 10 ml INJECT ONETIME ONE Stop: 10/28/21 08:41 Last Admin: 10/28/21 09:34 Dose: Not Given Documented by:
[2021-10-28 10:16] LABS: CORONAVIRUS COVID-19 NAA NEGATIVE (NEGATIVE)
[2021-10-28] MEDS ORDERED: Ondansetron 4 MG/2 ML SDV ONE (10:23)
[2021-10-28] MEDS ORDERED: Propofol 200 MG/20 ML SDV ONE ×2 (10:23→10:52)
[2021-10-28] MEDS ORDERED: fentaNYL 100 MCG/2 ML SDV ONE (10:23)
[2021-10-28] MEDS ORDERED: Lidocaine 1% 4 ML ONE (10:24)
[2021-10-28] MEDS ORDERED: Midazolam 1 MG/ML 2 ML SDV ONE ×2 (10:24→10:53)
[2021-10-28] MEDS ORDERED: Bupivacaine 0.5% 30 ML SDV ONE (10:27)
[2021-10-28] MEDS ORDERED: Lactated Ringers 1,000 ML ONE (10:30)
--- NOTE | 2021-10-28 11:19 | PCM48HPAN ---
Post Anesthesia Note - EVALUATION WITHIN 48HRS OF ANESTHETIC Vital Signs in Normal Range: Yes Patient Participated in Evaluation: Yes Respiratory Function Stable: Yes Airway Patent: Yes Cardiovascular Function Stable: Yes Hydration Status Stable: Yes Pain Control Satisfactory: Yes Nausea and Vomiting Control Satisfactory: Yes Mental Status Recovered: Yes Vital Signs: Last Vital Signs Temp 36.8 C 10/28/21 11:12 Pulse 81 10/28/21 11:12 Resp 15 10/28/21 11:12 BP 97/66 10/28/21 11:12 Pulse Ox 97 10/28/21 11:12 - COMMENTS/OBSERVATIONS Free Text/Narrative:: no anesthesia complications noted
--- NOTE | 2021-10-28 11:20 | PCM.PRNOTE ---
- Free Text/Narrative Note: Date: 10/28/2021 Operation: incision and drainage of perianal abscess Surgeon: Eben Jackson MD Findings: fairly small, superficial perianal abscess at right lateral aspect. Cultures obtained. unremarkable digital rectal exam. Detailed Report: The patient was taken to the OR and placed supine. Time out was performed and monitored anesthesia care initiated. The patient was repositioned in lithotomy and the perineum was prepped and draped in usual sterile fashion. 7 cc 0.5% marcaine was used to anesthetize skin at the site of the abscess. A 2.5 cm incision was made through skin using an 11 blade, and thin white pus was drained, approximately 20 cc. The abscess cavity was explored digitally and with a hemostat and loculations were broken up. The abscess cavity was relatively small and superficial. Digital rectal exam was unremarkable. The wound was irrigated with saline. Hemostasis was achieved using monopolar electrode. The wound was packed with moist gauze and a dry dressing of ABD pad and mesh underwear was applied. The patient tolerated the procedure well.
== END 2021-10-28 11:50 | disposition home or self-care (01) ==
LOC: JD.ED 07:57 → JD.SDS 10:17
PROVIDERS: ATTEND Surgery
DX: K61.0 Anal abscess (principal); F17.210 Nicotine dependence, cigarettes, uncomplicated; K21.9 Gastro-esophageal reflux disease without esophagitis; Z79.899 Other long term (current) drug therapy; Z01.812 Encounter for preprocedural laboratory examination; Z20.822 Contact with and (suspected) exposure to COVID-19
CPT/HCPCS: 0240U; 46050; 87070; 87205; J2250; J2405; J2704; J3010; J3490; J7120; 00902; 99284

== ENCOUNTER 2022-09-11 06:18 | Emergency (ER) | payer SELFPAY | END 2022-09-11 07:20 | disposition home or self-care (01) | LOC: JD.ED 06:18 | DX: M79.605 Pain in left leg (principal); M79.604 Pain in right leg; M79.602 Pain in left arm; M79.601 Pain in right arm; K21.9 Gastro-esophageal reflux disease without esophagitis; Z79.899 Other long term (current) drug therapy | CPT/HCPCS: 99282 ==

== ENCOUNTER 2022-10-27 16:21 | Emergency (ER) | payer BC ==
[2022-10-27] MEDS ORDERED: Polyethylene Glycol/Electrolytes 4,000 ML Bottle PO ONE (19:44)
== END 2022-10-27 22:30 | disposition home or self-care (01) ==
LOC: JD.ED 16:21
DX: K59.09 Other constipation (principal); K21.9 Gastro-esophageal reflux disease without esophagitis; F17.210 Nicotine dependence, cigarettes, uncomplicated; Z86.16 Personal history of COVID-19
CPT/HCPCS: 74019; 99283; A9270

== ENCOUNTER 2024-04-03 06:45 | Inpatient (IN) | payer SELFPAY ==
[2024-04-03 07:04] LABS: BASOPHILS ABSOLUTE AUTO 0.1 K/mm3 (0.0-0.2); BASOPHILS PERCENT AUTO 0.8 % (0.0-1.0); HEMATOCRIT 37.2 % (42.0-52.0); HEMOGLOBIN 11.9 gm/dl (14.0-18.0); IMMATURE GRAN ABSOLUTE AUTO 0.15 K/mm3 (0.00-0.05); LYMPHOCYTES ABSOLUTE AUTO 0.7 K/mm3 (1.0-4.8); LYMPHOCYTES PERCENT AUTO 9.7 % (24.0-44.0); MEAN CORPUSCULAR HEMOGLOBIN 38.4 pg (28.0-32.0); MEAN PLATELET VOLUME 9.5 fl (9.4-12.4); MONOCYTES ABSOLUTE AUTO 0.9 K/mm3 (0.0-0.8); MONOCYTES PERCENT AUTO 12.4 % (0.0-8.0); NEUTROPHILS ABSOLUTE AUTO 5.6 K/mm3 (1.8-7.7); NEUTROPHILS PERCENT AUTO 75.1 % (41.0-71.0); NRBC ABSOLUTE 0.02 (0.00-0.02); NRBC PERCENT 0.3 % (0.0-0.2); PLATELET COUNT,PLT 195 K/mm3 (150-400); WHITE BLOOD CELL COUNT,WBC 7.51 K/mm3 (3.9-11.3)
[2024-04-03] MEDS: Ondansetron 4 MG/2 ML SDV IVPUSH ONE (07:22)
[2024-04-03] MEDS: Famotidine 20 MG/2 ML SDV IVPUSH ONE (07:24)
[2024-04-03 07:31] LABS: SLIDE REVIEW ABNORMAL SMEAR
[2024-04-03 07:39] LABS: A/G RATIO 1.1 (1-2); ALBUMIN 3.4 g/dl (3.4-5.0); BILIRUBIN TOTAL 1.6 mg/dL (0.2-1.0); CALCIUM 7.7 mg/dL (8.5-10.1); CREATININE 1.2 mg/dL (0.7-1.3); EST CRCL DRUG DOSING (CG) 72.83 mL/min; ETHANOL BLOOD MEDICAL 0.08 gm% (0.00); MAGNESIUM 1.5 mg/dL (1.8-2.4); PROTEIN TOTAL,TP 6.4 g/dl (6.4-8.2)
[2024-04-03 08:04] LABS: APPEARANCE,URINE CLEAR (Clear); BILIRUBIN,URINE NEGATIVE (Negative); COLOR,URINE YELLOW (Yellow); GLUCOSE,URINE NEGATIVE (Negative); KETONES,URINE 3+ (Negative); LEUKOCYTE ESTERASE,URINE NEGATIVE (Negative); NITRITE,URINE NEGATIVE (Negative); OCCULT BLOOD,URINE 2+ (Negative); PH,URINE 5.5 (5.0-8.0); PROTEIN,URINE 2+ (Negative)
[2024-04-03] MEDS: 50% Dextrose in Water 50 ML Syringe IVPUSH STA (08:22)
[2024-04-03 08:25] LABS: BACTERIA,URINE MODERATE /hpf (FEW); MUCUS,URINE MODERATE /hpf (FEW); RBC,URINE 30-40 /hpf (0-5); SQUAMOUS EPITHELIAL CELLS,UR 0-5 /hpf (0-5); WBC,URINE 0-5 /hpf (0-5)
[2024-04-03] MEDS: hydrOXYzine HCl 25 MG Tab PO ONE (08:26)
[2024-04-03] MEDS: Sodium Chloride 0.9% 1,000 ML IV ONE ×2 (08:26→10:17)
[2024-04-03] MEDS: Metoclopramide 10 MG/2 ML SDV IVPUSH ONE (08:27)
[2024-04-03] MEDS: Metoprolol Tartrate 5 MG/5 ML SDV IVPUSH ONE (08:29)
[2024-04-03 08:31] LABS: AMPHETAMINES SCREEN, URINE NEGATIVE (CUTOFF=500); BARBITURATE SCREEN,URINE NEGATIVE (CUTOFF=200); BENZODIAZEPINES SCREEN,URINE NEGATIVE (CUTOFF=150); BUPRENORPHINE SCREEN,URINE NEGATIVE (CUTOFF=10); METHADONE SCREEN, URINE NEGATIVE (CUT0FF=200); METHAMPHETAMINES SCREEN, URINE NEGATIVE (CUTOFF=500); OXYCODONE SCREEN,URINE NEGATIVE (CUT0FF=100); THC SCREEN,URINE 20 NG/ML NEGATIVE (CUTOFF=50)
[2024-04-03] MEDS: Famotidine 10 MG Tab PO ONE (08:36)
[2024-04-03] MEDS: Pantoprazole 40 MG Vial IVPUSH ONE ×2 (08:36→23:16)
[2024-04-03] MEDS: chlordiazePOXIDE 25 MG Cap PO ONE (08:51)
[2024-04-03] MEDS: LORazepam 2 MG/ML SDV IVPUSH ONE (08:53)
[2024-04-03] MEDS: cloNIDine 0.1 MG Tab PO ONE (08:54)
[2024-04-03] MEDS ORDERED: Ondansetron 4 MG/2 ML SDV IV PRN (09:16)
[2024-04-03] MEDS ORDERED: Docusate Sodium 100 MG Cap PO PRN (09:16)
[2024-04-03] MEDS ORDERED: Ondansetron 4 MG Tab.DIS PO PRN (09:16)
[2024-04-03] MEDS ORDERED: Metoprolol Tartrate 25 MG Tab PO PRN (09:19)
[2024-04-03] MEDS ORDERED: cloNIDine 0.1 MG Tab PO PRN (09:19)
[2024-04-03 10:04] LABS: BASE EXCESS ARTERIAL -27.5 (-2-2.0); BICARBONATE,ARTERIAL 4.5 meq/L (22.0-26.0); O2 SATURATION ARTERIAL 90.1 % (96.0-97.0); PCO2 ARTERIAL 23.8 mmHg (35.0-45.0)
[2024-04-03] MEDS: Sodium Bicarbonate 150 MEQ in Dextrose 5% in Water 1,000 ML IV ONE ×2 (10:45→18:38)
[2024-04-03] MEDS: Sodium Bicarbonate 8.4% 50 MEQ/50 ML SDV ONE (10:45)
[2024-04-03] MEDS: LORazepam 1 MG Tab PO SCH (11:06)
[2024-04-03] MEDS: Heparin Sodium 5,000 Units/ML Vial SUBCUT SCH (11:11)
[2024-04-03] MEDS: Nicotine 14 MG/24 Hr Patch TRDERM ONE (11:11)
[2024-04-03] MEDS: Folic Acid 1 MG Tab PO SCH (11:14)
[2024-04-03] MEDS: Thiamine 100 MG Tab PO SCH (11:14)
[2024-04-03] MEDS: Sodium Chloride 0.9% 1,000 ML ONE (11:15)
[2024-04-03] MEDS: Phenylephrine 10 MG in Sodium Chloride 0.9% 99 ML IV SCH (12:15)
[2024-04-03 12:58] LABS: BASE EXCESS VENOUS -15.4 (-4.0-2.0); BICARBONATE,VENOUS 10.9 meq/L (22-26); O2 SATURATION VENOUS 42.1; PCO2 VENOUS 27.9 mmHg (41-51); PH,VENOUS 7.22 (7.30-7.40)
[2024-04-03] MEDS: Lactated Ringers 1,000 ML IV ONE (13:00)
[2024-04-03] MEDS: Magnesium Sulfate/Water 2 GM/50 ML BAG IV ONE (13:31)
[2024-04-03] MEDS ORDERED: Lactated Ringers 1,000 ML ONE (14:06)
[2024-04-03] MEDS ORDERED: Lactated Ringers 1,000 ML IV SCH ×3 (14:15→22:45)
[2024-04-03 17:07] LABS: A/G RATIO 1.1 (1-2); ALBUMIN 2.6 g/dl (3.4-5.0); BILIRUBIN TOTAL 2.6 mg/dL (0.2-1.0); BUN/CREATININE RATIO 5.8 (14-18); CALCIUM 6.9 mg/dL (8.5-10.1); CREATININE 1.2 mg/dL (0.7-1.3); EST CRCL DRUG DOSING (CG) 72.83 mL/min
[2024-04-03] MEDS: Insulin Lispro 100 Unit/ML 3 ML KwikPen SUBCUT SCH (17:35)
[2024-04-03 17:52] LABS: HEMOGLOBIN A1C 4.6 %
[2024-04-03] MEDS: LORazepam 2 MG/ML SDV IV SCH (18:50)
[2024-04-03] MEDS: Albuterol/Ipratropium 3.0-0.5 MG/3 ML Neb Soln NEB PRN (18:50)
[2024-04-03] MEDS: PHENobarbital Sodium 65 MG/ML SDV IVPUSH ONE ×2 (19:21→19:46)
[2024-04-03] MEDS: Scopalamine 1mg/3day Transdermal Patch TRDERM PRN (19:49)
[2024-04-03] MEDS: PHENobarbital Sodium 65 MG/ML SDV ONE ×2 (19:49→19:52)
[2024-04-03] MEDS: Furosemide 20 MG/2 ML VIAL ONE (19:50)
[2024-04-03] MEDS: Furosemide 40 MG/4 ML VIAL IVPUSH ONE ×2 (19:50→23:43)
[2024-04-03] MEDS: LORazepam 2 MG/ML SDV IM ONE (19:51)
[2024-04-03] MEDS ORDERED: PHENobarbital Sodium 65 MG/ML SDV IVPUSH PRN (20:25)
[2024-04-03 20:54] LABS: BASE EXCESS ARTERIAL -7.4 (-2-2.0); BICARBONATE,ARTERIAL 16.5 meq/L (22.0-26.0); O2 SATURATION ARTERIAL 92.1 % (96.0-97.0); PCO2 ARTERIAL 30.1 mmHg (35.0-45.0)
[2024-04-03] MEDS: Pantoprazole 40 MG Vial IV SCH (21:48)
[2024-04-03] MEDS: PHENobarbital Sodium 65 MG/ML SDV IVPUSH PRN (23:26)
[2024-04-03] MEDS ORDERED: Furosemide 40 MG/4 ML VIAL IVPUSH ONE (23:30)
[2024-04-04 05:27] LABS: BASOPHILS PERCENT AUTO 0.5 % (0.0-1.0); EOSINOPHILS PERCENT AUTO 0.4 % (0.0-6.0); HEMATOCRIT 31.4 % (42.0-52.0); HEMOGLOBIN 10.9 gm/dl (14.0-18.0); IMMATURE GRAN ABSOLUTE AUTO 0.04 K/mm3 (0.00-0.05); IMMATURE GRAN PERCENT AUTO 0.7 % (0.0-0.4); LYMPHOCYTES ABSOLUTE AUTO 1.1 K/mm3 (1.0-4.8); LYMPHOCYTES PERCENT AUTO 20.1 % (24.0-44.0); MEAN CORPUSCULAR HGB CONC 34.7 g/dl (32.0-36.0); MEAN PLATELET VOLUME 10.5 fl (9.4-12.4); MONOCYTES ABSOLUTE AUTO 0.2 K/mm3 (0.0-0.8); MONOCYTES PERCENT AUTO 3.6 % (0.0-8.0); NEUTROPHILS ABSOLUTE AUTO 4.2 K/mm3 (1.8-7.7); NEUTROPHILS PERCENT AUTO 74.7 % (41.0-71.0); NRBC ABSOLUTE 0.03 (0.00-0.02); NRBC PERCENT 0.5 % (0.0-0.2); PLATELET COUNT,PLT 121 K/mm3 (150-400); RED BLOOD CELL COUNT 2.87 M/mm3 (4.52-5.90); WHITE BLOOD CELL COUNT,WBC 5.56 K/mm3 (3.9-11.3)
[2024-04-04 05:44] LABS: MEAN CORPUSCULAR VOLUME 109.4 fl (83.0-99.0)
[2024-04-04 05:52] LABS: SLIDE REVIEW ABNORMAL SMEAR
[2024-04-04 05:53] LABS: ALBUMIN 2.4 g/dl (3.4-5.0); BILIRUBIN TOTAL 1.6 mg/dL (0.2-1.0); BUN/CREATININE RATIO 4.5 (14-18); CALCIUM 6.7 mg/dL (8.5-10.1); CREATININE 1.1 mg/dL (0.7-1.3); EST CRCL DRUG DOSING (CG) 79.26 mL/min; MAGNESIUM 1.2 mg/dL (1.8-2.4); PROTEIN TOTAL,TP 4.8 g/dl (6.4-8.2)
[2024-04-04 05:58] LABS: BICARBONATE,ARTERIAL 30.5 meq/L (22.0-26.0); O2 SATURATION ARTERIAL 98.1 % (96.0-97.0); PCO2 ARTERIAL 32.3 mmHg (35.0-45.0)
[2024-04-04 05:59] LABS: BASE EXCESS ARTERIAL 8.2 (-2-2.0)
[2024-04-04] MEDS ORDERED: Magnesium Sulfate (4.06 MEQ/ML) 5 GM/10 ML SDV IV ONE ×3 (06:18→06:24)
[2024-04-04] MEDS: Furosemide 40 MG/4 ML VIAL IVPUSH ONE (06:32)
[2024-04-04] MEDS: Magnesium Sulfate/Water 2 GM in Premix Bag 1 BAG IV ONE (06:34)
[2024-04-04] MEDS: Potassium Chloride 10 MEQ in Premix Bag 1 BAG IV SCH (06:35)
[2024-04-04] MEDS ORDERED: Furosemide 40 MG/4 ML VIAL IVPUSH SCH (12:00)
[2024-04-04] MEDS: Magnesium Sulfate/Water 2 GM/50 ML BAG IV SCH (22:25)
[2024-04-05 08:07] LABS: BASOPHILS PERCENT AUTO 0.6 % (0.0-1.0); EOSINOPHILS ABSOLUTE AUTO 0.1 K/mm3 (0.0-0.4); EOSINOPHILS PERCENT AUTO 1.5 % (0.0-6.0); HEMATOCRIT 29.4 % (42.0-52.0); HEMOGLOBIN 10.3 gm/dl (14.0-18.0); IMMATURE GRAN ABSOLUTE AUTO 0.03 K/mm3 (0.00-0.05); IMMATURE GRAN PERCENT AUTO 0.5 % (0.0-0.4); LYMPHOCYTES PERCENT AUTO 15.9 % (24.0-44.0); MEAN CORPUSCULAR HEMOGLOBIN 37.9 pg (28.0-32.0); MEAN CORPUSCULAR VOLUME 108.1 fl (83.0-99.0); MEAN PLATELET VOLUME 11.4 fl (9.4-12.4); MONOCYTES ABSOLUTE AUTO 0.2 K/mm3 (0.0-0.8); MONOCYTES PERCENT AUTO 3.4 % (0.0-8.0); NEUTROPHILS ABSOLUTE AUTO 4.8 K/mm3 (1.8-7.7); NEUTROPHILS PERCENT AUTO 78.1 % (41.0-71.0); PLATELET COUNT,PLT 102 K/mm3 (150-400); RED BLOOD CELL COUNT 2.72 M/mm3 (4.52-5.90); WHITE BLOOD CELL COUNT,WBC 6.17 K/mm3 (3.9-11.3)
[2024-04-05 08:33] LABS: A/G RATIO 0.9 (1-2); ALBUMIN 2.2 g/dl (3.4-5.0); ANION GAP 11.9 (5-15); BILIRUBIN TOTAL 1.3 mg/dL (0.2-1.0); BUN/CREATININE RATIO 4.3 (14-18); CALCIUM 7.3 mg/dL (8.5-10.1); CREATININE 0.7 mg/dL (0.7-1.3); EST CRCL DRUG DOSING (CG) 118.55 mL/min; POTASSIUM,K 2.9 mEq/L (3.5-5.1); PROTEIN TOTAL,TP 4.7 g/dl (6.4-8.2)
[2024-04-05] MEDS ORDERED: Meropenem 1 GM in Sodium Chloride 0.9% 100 ML IV SCH (09:00)
[2024-04-05] MEDS: Acetaminophen 650 MG Supp RECTAL PRN (09:24)
[2024-04-05] MEDS: Folic Acid 50 MG/10 ML MDV IV SCH (09:25)
[2024-04-05] MEDS: Potassium Chloride 10 MEQ in Premix Bag 1 BAG IV SCH (10:02)
[2024-04-05] MEDS: Meropenem 500 MG in Sodium Chloride 0.9% 100 ML IV SCH (10:11)
[2024-04-05] MEDS: Sodium Chloride 0.9% 1,000 ML IV ONE (10:13)
[2024-04-05 10:22] LABS: LACTIC ACID 1.5 mmol/L (0.4-2.0)
[2024-04-05 11:51] LABS: APPEARANCE,URINE CLEAR (Clear); BILIRUBIN,URINE 1+ (Negative); COLOR,URINE YELLOW (Yellow); GLUCOSE,URINE NEGATIVE (Negative); KETONES,URINE NEGATIVE (Negative); LEUKOCYTE ESTERASE,URINE NEGATIVE (Negative); NITRITE,URINE NEGATIVE (Negative); OCCULT BLOOD,URINE NEGATIVE (Negative); PH,URINE >=9.0 (5.0-8.0); PROTEIN,URINE 1+ (Negative); UROBILINOGEN,URINE >=8.0 (0.2-1.0)
[2024-04-05 12:57] LABS: BACTERIA,URINE RARE /hpf (FEW); EPITHELIAL CELLS,URINE 0-5 /hpf (0-5); MUCUS,URINE NOT SEEN /hpf (FEW); RBC,URINE 0-5 /hpf (0-5); WBC,URINE 0-5 /hpf (0-5)
[2024-04-05 14:47] LABS: BASE EXCESS ARTERIAL 0.1 (-2-2.0); BICARBONATE,ARTERIAL 24.8 meq/L (22.0-26.0); PCO2 ARTERIAL 43.5 mmHg (35.0-45.0)
[2024-04-05] MEDS: Morphine 2 MG/ML SYRINGE IVPUSH ONE (14:53)
[2024-04-05] MEDS: LORazepam 2 MG/ML SDV IVPUSH ONE (14:55)
[2024-04-05] MEDS ORDERED: Rocuronium 50 MG/5 ML Vial ONE (15:00)
[2024-04-05] MEDS ORDERED: Midazolam 1 MG/ML 5 ML SDV ONE (15:00)
[2024-04-05 15:17] LABS: SLIDE REVIEW ABNORMAL SMEAR
[2024-04-05 15:18] LABS: BASE EXCESS ARTERIAL 3.5 (-2-2.0); BICARBONATE,ARTERIAL 26.1 meq/L (22.0-26.0); PCO2 ARTERIAL 32.6 mmHg (35.0-45.0)
== END 2024-04-05 15:47 | DRG 896 ==
LOC: JD.ED 06:45 → JD.ICU 09:16
PROVIDERS: ADMIT Hospitalist; ATTEND Internal Medicine
PROC: 4A133R1 Monitoring of Arterial Saturation, Peripheral, Percutaneous Approach (ICD-10-PCS; 2024-04-03)
PROC: 3E033XZ Introduction of Vasopressor into Peripheral Vein, Percutaneous Approach (ICD-10-PCS; 2024-04-03)
PROC: 5A1935Z Respiratory Ventilation, Less than 24 Consecutive Hours (ICD-10-PCS; principal; 2024-04-05)
PROC: 0BH17EZ Insertion of Endotracheal Airway into Trachea, Via Natural or Artificial Opening (ICD-10-PCS; 2024-04-05)
DX: F10.231 Alcohol dependence with withdrawal delirium (principal); G93.41 Metabolic encephalopathy; J69.0 Pneumonitis due to inhalation of food and vomit; E87.29 Other acidosis; F10.221 Alcohol dependence with intoxication delirium; F17.213 Nicotine dependence, cigarettes, with withdrawal; E86.0 Dehydration; I10 Essential (primary) hypertension; E83.42 Hypomagnesemia; I16.0 Hypertensive urgency; K70.10 Alcoholic hepatitis without ascites; E87.6 Hypokalemia; H91.90 Unspecified hearing loss, unspecified ear; K21.9 Gastro-esophageal reflux disease without esophagitis; Z86.16 Personal history of COVID-19; Z98.890 Other specified postprocedural states
CPT/HCPCS: 31500; 36415; 36600; 51702; 70450; 70450-26; 71045; 71045-26; 80053; 80306; 80307; 81001; 82803; 82947; 83036; 83605; 83735; 83880; 84300; 84484; 85025; 87040; 93005; 93010; 93307; 94002; 94640; 94660; 94761; 94762; 96361; 96374; 96375; 99222; 99232; 99239; 99285; 99285-25; A9270-GY; C9113; J1644; J1815; J1940; J2060; J2185; J2250; J2270; J2371; J2405; J2560; J2765; J3475; J3480; J3490; J7030; J7060; J7120; J7620-GY